=== PATIENT | female | born 1995 | race Caucasian/White ===

== ENCOUNTER 2024-10-06 13:17 | Emergency (ER) | payer MEDICAID ==
[~2024-10-06] VITALS: Ht 167.6 cm; Wt 104.3 kg
[~2024-10-06 13:17] MED LIST: AUGMENTIN 875875 MG PO; MEDROL DOSEPAK4 MG PO
[2024-10-06] MEDS ORDERED: MORPHINE Sulfate 2 MG/ML SYR IV ONE (13:40)
[2024-10-06] MEDS ORDERED: SODIUM CHLORIDE 0.9% 1,000 ML IV ONE (13:40)
[2024-10-06] MEDS ORDERED: diphenhydrAMINE hydrochloride 50 MG/ML VIAL IV ONE (13:45)
[2024-10-06] MEDS ORDERED: Metoclopramide Hydrochloride 10 MG/2 ML VIAL IV ONE (13:45)
[2024-10-06 14:07] LABS: HEMATOCRIT 44.1 % (37.0-47.0); MANUAL DIFF REFLEX YES; MEAN CORPUSCULAR HGB 28.8 pg (27.0-31.0); MEAN PLATELET VOLUME 9.6 fl (9.6-12.3); PLATELET COUNT AUTOMATED 268 10*3/uL (130-400); RED CELL DISTRI WIDTH 13.3 % (0-14.5); WHITE BLOOD COUNT 15.6 10*3/uL (4.8-10.8)
[2024-10-06 14:27] LABS: OVALOCYTES FEW; PLATELET SUFFICIENCY NORMAL (NORMAL); ROULEAUX SLIGHT; TOTAL CELLS COUNTED 100 #CELLS
[2024-10-06 14:30] LABS: BUN 9 mg/dl (9-23); CHLORIDE 106 mmol/L (98-107); LIPASE 23 U/L (12-53); POTASSIUM 3.7 mmol/L (3.4-5.1)
[2024-10-06 14:31] LABS: B-hCG (QUALITATIVE) NEGATIVE (NEGATIVE)
[2024-10-06 15:42] LABS: BILIRUBIN Negative (Negative); BLOOD Negative (Negative); CLARITY Cloudy (Clear); COLOR Yellow (Yellow); GLUCOSE Negative (Negative); KETONE Negative (Negative); LEUKO ESTERASE Negative (Negative); NITRITE Negative (Negative); UROBILINOGEN 0.2 E.U./dl (0.0-1.0)
[2024-10-06 16:04] LABS: PH 8.5 (4.5-8.0)
[2024-10-06] MEDS ORDERED: Ciprofloxacin Hydrochloride 500 MG TAB PO ONE (16:05)
[2024-10-06] MEDS ORDERED: METRONIDAZOLE 500 MG TAB PO ONE (16:05)
[2024-10-06 16:06] LABS: BACTERIA 2+; MUCOUS 1+
[2024-10-06] MEDS ORDERED: PERCOCET 5-3251 EACH PO (16:06)
[2024-10-06] MEDS ORDERED: Ondansetron4 MG PO (16:06)
[2024-10-06] MEDS ORDERED: METRONIDAZOLE500 M1 PO (16:06)
[2024-10-06] MEDS ORDERED: CIPRO500 MG PO (16:06)
== END 2024-10-06 16:20 | disposition home or self-care (01) ==
LOC: ED 13:17
PROVIDERS: Emergency Medicine
DX: K52.9 Noninfective gastroenteritis and colitis, unspecified (principal)